=== PATIENT | female | born 1970 | race Caucasian/White ===

== ENCOUNTER 2017-09-26 16:47 | Inpatient (IN) | payer BC ==
[2017-09-26] MEDS ORDERED: CEFOXITIN SODIUM 2 GM in DEXTROSE 5 % IN WATER 100 ML IV ONE ×2 (17:27)
[2017-09-26] MEDS ORDERED: RINGER'S SOLUTION,LACTATED 1,000 ML IV ONE ×2 (17:33→18:05)
--- NOTE | 2017-09-26 17:41 | HP ---
Chief Complaint - Chief Complaint Date of Service: 09/26/17 Time of Service: 17:32 Chief Complaint: acute appendicitis History of Present Illness: Started with nausea and vomiting yesterday. Then developed abdominal pain. Evaluated at [facility] ER and found to have RLQ tenderness, elevated WBC and CT scan evidence of acute appendicitis. There is no surgeon at that institution, and she was transferred here for treatment. - Patient's Past Medical History Patient History - Medical: No pertinent hx Patient History - Cardiac/Respiratory: No pertinent hx Patient History - Cancer: No Hx of Cancer Patient History - Surgical Procedures: Hysterectomy, Orthopedic Patient History - Other: None LMP (females 10-50): Menopausal - Family History Family History:: no untoward family reactions to anesthesia, no familial bleeding tendencies - Social History Living Situations: home Abuse History: No History of abuse Psych History: No pertinent hx Smoking Status: Never smoker Alcohol Use: occasionally Drug Use: none - Immunizations Immunizations Up to Date: No Hx Pneumococcal Vaccination: No History of Influenza Vaccine: No Review Of Systems (GEN) - Review of Systems Generalized/Overall Review: Absent: Chills, Fever EENTM: Present: No Symptoms Reported Respiratory: Present: No Symptoms Reported Cardiac: Present: No Symptoms Reported Abdominal: Present: Nausea, Vomiting, Abdominal Pain Genitourinary: Present: No Symptoms Reported Musculoskeletal: Present: No Symptoms Reported Neurological: Present: No Symptoms Reported Skin: Present: No Symptoms Reported Immunizations: IMMUNIZATION HX Immunizations Up to Date No History of Influenza Vaccine No Hx Pneumococcal Vaccination No Allergies/Adverse Reactions: Allergies Allergy/AdvReac Type Severity Reaction Status Date / Time ciprofloxacin [From Cipro] Allergy Verified 09/26/17 16:49 Penicillins Allergy Verified 09/26/17 16:49 Sulfa (Sulfonamide Allergy Verified 09/26/17 16:49 Antibiotics) Home Medications: HOME MEDICATIONS PARoxetine HCL [Paxil] 5 mg PO DAILY 09/26/17 [Last Taken Unknown] Exam - Exam Vital Signs: Vital Signs - Last Taken Temp 38.5 C H 09/26/17 16:54 Pulse 115 H 09/26/17 17:30 Resp 16 09/26/17 17:30 BP 132/78 09/26/17 17:30 Pulse Ox 99 09/26/17 17:30 Constitutional: Present: Alert, Oriented x3, Cooperative, Well developed, Well nourished, Mild distress ENT Exam: Present: normal ENT inspection, hearing grossly normal Eye Exam: bilateral eye: normal inspection Neck: Present: non-tender, full range of motion, normal inspection Breasts: Present: Exam deferred Respiratory: Present: lungs clear, normal breath sounds, no respiratory distress Cardiovascular/Chest: Present: normal peripheral pulses, regular rate, rhythm, no murmur, tachycardia Peripheral Pulses: dorsalis-pedis (R): 4+, dorsalis-pedis (L): 4+, radial (R): 4 +, radial (L): 4+ Abdomen: Present: other - tender RLQ with rebound Skin Exam: Present: other - warm, diaphoratic 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 Risks and benefit of appendectomy explained as well as expected course of treatment/recovery. After an interactive discussion, her questions were answered to her apparent satisfaction and informed consent for appendectomy (laparoscopic or open) was obtained. present for interview and exam. Chlorhexidine wipes, IV Mefoxin (has taken cephalosporin before), SCD's. Problem: Acute
[2017-09-26] MEDS ORDERED: BUPIVACAINE HCL/EPINEPHRINE 50 ML VIAL IJ ONE ×2 (18:30)
[2017-09-26] MEDS ORDERED: MUPIROCIN 22 APPL TUBE TP ONE ×2 (19:48→20:00)
[2017-09-26] MEDS ORDERED: ONDANSETRON HCL/PF 2 MG/ML VIAL IV PRN (20:19)
[2017-09-26] MEDS ORDERED: MORPHINE SULFATE 4 MG/ML SYRG IV PRN (20:19)
[2017-09-26] MEDS ORDERED: PANTOPRAZOLE SODIUM 40 MG in NORMAL SALINE 100 ML IV SCH (20:30)
--- NOTE | 2017-09-26 20:43 | OR ---
Operative Report - Dictated Report Narrative: Date of operation: 09/26/2017 Preoperative diagnosis: Acute appendicitis Postoperative diagnosis: Acute appendicitis with rupture and generalized peritonitis Operation: Laparoscopic appendectomy Surgeon: ROBERT Jenkins MD Anesthesia: Gen. yandy Dewitt CRNA Indications for procedure: The patient is a 47-year-old female presented to [facility] ER with a one-day history of abdominal pain. She was found to have right lower quadrant tenderness, elevated white blood cell count, and CT scan evidence of acute appendicitis. There is no surgeon at that facility and she was transferred here for treatment. Findings: Severe acute appendicitis with rupture and generalized peritonitis Narrative of procedure: The patient was identified preoperatively, and prior to the administration of anesthetic a multidisciplinary timeout was observed. The patient was placed supine, SCDs were applied, and 2 g of intravenous Mefoxin administered. General endotracheal anesthetic was administered. The patient's abdomen was prepped with Betadine solution, and a generous operating field outlined with 4 sterile towels. The remainder the patient was covered with a sterile disposable drape. A transverse infraumbilical skin incision was made, and dissection was carried along the umbilical stalk until the fascia of the linea alba was encountered. This was incised. The peritoneum was elevated and incised to allow entry into the abdomen under direct vision. A Hussan cannula was placed and the abdomen insufflated with CO2. The laparoscopic camera was introduced and the abdomen briefly explored. The upper abdomen was obscured by a grossly dilated colon. The pelvis evidenced inflammatory changes with green purulent fluid indicating appendiceal rupture. The appendix was not immediately visible due to the grossly dilated nature of the cecum. Next under direct vision, 2 additional working ports were inserted through separate skin incisions, one in the suprapubic area one in the left lower quadrant. The apex of the cecum was retracted cephalad revealing the tip of a grossly inflamed and ruptured appendix. The pelvis and right lower quadrant were carefully suctioned clean. Although the appendix could be traced proximally for a short distance, omental adhesions along the right anterolateral abdominal wall prevented adequate cecal mobilization to visualize the proximal appendix. The adhesions were lysed under direct vision to allow mobilization of the right colon. Although the cecum could be retracted cephalad, it was apparent that additional retraction would be needed. An additional 5 mm working port was inserted through a separate skin incision in the right upper quadrant and used to grasp and retract the cecum. Gradually the inflamed appendix was traced proximally until the mesoappendix and base of the appendix were adequately exposed to allow transection. The mesoappendix and base of the appendix were then transected with a single application of a laparoscopic BRODIE stapling device. The stump of the appendix was seen to be hemostatic and gas and liquid tight. The mesoappendix was seen to be hemostatic. The appendix was placed in an Endobag and parked in the right lower quadrant. The right lower quadrant and pelvis were then irrigated with saline and suctioned clean. The small working ports were then withdrawn under direct vision to ensure entry site hemostasis. The appendix was removed in conjunction with the Hussan cannula. The pneumoperitoneum was allowed to escape , and after receiving a correct sponge needle and instrument count attention was turned to closing the abdomen. The fascia and peritoneum at the umbilicus were approximated with interrupted sutures of antibiotic containing #1 Vicryl. The subcutaneous tissue was irrigated with Betadine and saline, and space obliterated with interrupted sutures of 2-0 chromic. Skin incisions were approximated with interrupted vertical mattress sutures of 4-0 nylon. The operative sites were washed and dried. Dressings of Bactroban ointment and large Band-Aids were applied to the small port sites. The umbilical incision was dressed with Bactroban ointment, 2 x 2, large Band-Aid, and Medipore tape. The operative procedure was terminated at this point. There was no measurable blood loss. 0.5% Marcaine with epinephrine was used for local anesthetic infiltration area the appendix was submitted to pathology. The patient tolerated the anesthetic and procedure well without complication and was transferred to the recovery room awake, extubated, and in stable condition. Reviewed and electronically signed
[2017-09-26] MEDS: RINGER'S SOLUTION,LACTATED 1,000 ML IV PRN (21:51)
[2017-09-26] MEDS: CEFOXITIN SODIUM 2 GM in DEXTROSE 5 % IN WATER 100 ML IV SCH ×2 (23:54)
[2017-09-27] MEDS: oxyCODONE HCL/ACETAMINOPHEN 1 TAB TABLET PO PRN ×5 (00:03→21:28)
[2017-09-27] MEDS: CEFOXITIN SODIUM 2 GM in DEXTROSE 5 % IN WATER 100 ML IV SCH ×6 (06:02→19:44)
[2017-09-27] MEDS: RINGER'S SOLUTION,LACTATED 1,000 ML IV PRN (09:19)
[2017-09-27] MEDS: PARoxetine HCL 10 MG TABLET PO SCH (09:19)
[2017-09-27 11:22] LABS: Hemoglobin 12.3 gm/dL (12.5-16.0); Mean Cell Volume 87.5 fl (78-100); Mean Corpuscular Hemoglobin 30.8 pg (27-31); Mean Corpuscular Hgb Conc 35.1 g/dl (32-36); Neutrophil # 12.5 K/mm3 (1.3-6.0); Neutrophil % 86.8 % (42-75.0); Platelet Count 284 K/mm3 (150-450); White Blood Count 14.3 K/mm3 (4.0-10.5)
[2017-09-27] MEDS ORDERED: BISACODYL 5 MG TABLET.DR PO ONE ×2 (18:25→19:45)
[2017-09-27] MEDS ORDERED: BISACODYL 10 MG SUPP.RECT RC ONE ×2 (18:25→19:45)
--- NOTE | 2017-09-27 18:25 | PN ---
Dictated Progress Note - Date and Time Seen: Date: 09/27/17 Time: 18:22 - Progress Note Narrative: Vital Signs - Last Taken Temp 36.8 C 09/27/17 14:52 Pulse 93 09/27/17 14:52 Resp 20 09/27/17 14:52 BP 116/70 09/27/17 14:52 Pulse Ox 98 09/27/17 14:52 Abnormal/Pending Laboratory Last 24 HRS 09/27/17 11:19 WBC 14.3 H RBC 4.00 L Hgb 12.3 L Hct 35.0 L Immature Gran % (Auto) 0.60 H Immature Gran # (Auto) 0.08 H Neutrophils % 86.8 H Lymphocytes % 10.0 L Neutrophils # 12.5 H Lymphocytes # 1.44 L POD#1 Laparoscopic appendectomy VS normal, presenting pain now incisional. Dressings dry. Tolerating diet, no BM (has trouble at home) WBC down but not normal Will continue IV Mefoxin with saline lock. Dulcolax. Ambulate Re-check CBC in AM
[2017-09-27] MEDS: PANTOPRAZOLE SODIUM 40 MG in NORMAL SALINE 50 ML IV SCH (21:08)
[2017-09-28] MEDS: CEFOXITIN SODIUM 2 GM in DEXTROSE 5 % IN WATER 100 ML IV SCH ×4 (00:30→06:56)
[2017-09-28] MEDS: oxyCODONE HCL/ACETAMINOPHEN 1 TAB TABLET PO PRN ×4 (02:56→21:52)
[2017-09-28 05:21] LABS: Hematocrit 32.9 % (37.0-47.0); Hemoglobin 11.3 gm/dL (12.5-16.0); Mean Cell Volume 88.2 fl (78-100); Mean Corpuscular Hemoglobin 30.3 pg (27-31); Mean Corpuscular Hgb Conc 34.3 g/dl (32-36); Mean Platelet Volume 9.1 fl (6.0-9.5); Neutrophil # 12.4 K/mm3 (1.3-6.0); Neutrophil % 86.5 % (42-75.0); Platelet Count 262 K/mm3 (150-450); Red Blood Count 3.73 M/mm3 (4.2-5.4); Red Cell Distribution Width 12.9 % (11.5-14.0); White Blood Count 14.3 K/mm3 (4.0-10.5)
--- NOTE | 2017-09-28 09:28 | PN ---
Dictated Progress Note - Date and Time Seen: Date: 09/28/17 Time: 09:26 - Progress Note Narrative: Vital Signs - Last Taken Temp 37.2 C 09/28/17 07:49 Pulse 100 09/28/17 07:49 Resp 18 09/28/17 07:49 BP 121/71 09/28/17 07:49 Pulse Ox 98 09/28/17 07:49 Abnormal/Pending Laboratory Last 24 HRS 09/28/17 09/27/17 05:18 11:19 WBC 14.3 H 14.3 H RBC 3.73 L 4.00 L Hgb 11.3 L 12.3 L Hct 32.9 L 35.0 L Immature Gran % (Auto) 0.80 H 0.60 H Immature Gran # (Auto) 0.11 H 0.08 H Neutrophils % 86.5 H 86.8 H Lymphocytes % 9.4 L 10.0 L Neutrophils # 12.4 H 12.5 H Lymphocytes # 1.35 L 1.44 L POD#2 perforated appendicitis Pain better however tachycardic and WBC remains elevated MULTIPLE antibiotic allergies so cannot use flouroquinone. Will switch to Zosyn and monitor WBC She will need to have IV antibiotic until WBC normal
[2017-09-28] MEDS: PIPERACILLIN SODIUM/TAZOBACTAM 3.375 GM in DEXTROSE 5 % IN WATER 100 ML IV SCH ×4 (09:55→17:38)
[2017-09-28] MEDS: PARoxetine HCL 10 MG TABLET PO SCH (09:55)
[2017-09-28] MEDS ORDERED: MORPHINE SULFATE 2 MG/ML DISP.SYRIN IV PRN (10:00)
[2017-09-28] MEDS ORDERED: BISACODYL 5 MG TABLET.DR PO ONE (14:30)
[2017-09-28] MEDS ORDERED: PARoxetine HCL 10 MG TABLET PO ONE (15:00)
[2017-09-28] MEDS: SACCHAROMYCES BOULARDII 250 MG CAPSULE PO SCH (21:04)
[2017-09-28] MEDS: PANTOPRAZOLE SODIUM 40 MG in NORMAL SALINE 50 ML IV SCH (21:51)
[2017-09-29] MEDS: PIPERACILLIN SODIUM/TAZOBACTAM 3.375 GM in DEXTROSE 5 % IN WATER 100 ML IV SCH ×4 (01:07→08:33)
[2017-09-29 05:51] LABS: Hematocrit 33.5 % (37.0-47.0); Hemoglobin 11.3 gm/dL (12.5-16.0); Mean Cell Volume 89.1 fl (78-100); Mean Corpuscular Hemoglobin 30.1 pg (27-31); Mean Corpuscular Hgb Conc 33.7 g/dl (32-36); Mean Platelet Volume 8.8 fl (6.0-9.5); Neutrophil % 84.7 % (42-75.0); Platelet Count 298 K/mm3 (150-450); Red Blood Count 3.76 M/mm3 (4.2-5.4); Red Cell Distribution Width 12.9 % (11.5-14.0); White Blood Count 11.8 K/mm3 (4.0-10.5)
[2017-09-29] MEDS: SACCHAROMYCES BOULARDII 250 MG CAPSULE PO SCH (08:31)
[2017-09-29] MEDS: oxyCODONE HCL/ACETAMINOPHEN 1 TAB TABLET PO PRN (08:31)
[2017-09-29] MEDS: PARoxetine HCL 10 MG TABLET PO SCH (08:32)
--- NOTE | 2017-09-29 09:53 | DS ---
(1) Acute appendicitis Diagnosis(s): with perforation and generalized peritonitis Problem: Resolved Qualifiers: Acute appendicitis type: with generalized peritonitis Qualified Code(s): K35.2 - Acute appendicitis with generalized peritonitis; K35.0 - Acute appendicitis with generalized peritonitis Description of Stay: She underwent uncomplicated laparoscopic appendectomy for acute appendicitis with rupture and generalized peritonitis. An extra RUQ port was utilized for retraction. Chlorhexidine wipes, SCD's. She initially was given IV Mefoxin (did not evidence allergy) which was changed to IV Zosyn for broader spectrum coverage. Her presenting pain was replaced with incisional discomfort. Her incisions remained dry. She tolerated advanced diet and ambulated independently. Her WBC decreased. Discharged home on Augmentin BID x 7 days (stop if adverse reaction) and Percocet for pain. Instructions given and has phone #'s to call for questions or concerns. To contact the office for f/u apt 10/04/17. Work excuse given. Procedures Performed: see notes below - laparoscopic appendectomy Discharge Location: Home Disposition: Home self-care Condition: Good Discharge Activity: Activity as tolerated, No Lifting Discharge Diet: General/regular food Problem Oriented Discharge Instructions to Patient/Family: Laparoscopic Appendectomy, Adult, Care After, [id number] Prescriptions (Any new or edited meds): Amox Tr/Potassium Clavulanate [Augmentin 875-125 Tablet] 875 mg PO Q12H #14 tab oxyCODONE HCL/ACETAMINOPHEN [Percocet 5 MG/325 MG] 1 tab PO Q4H PRN #30 tablet PRN Reason: Moderate Pain (Pain Scale 4-6) Complete Home Medications List: Complete Home Medication List: PARoxetine HCL [Paxil] 5 mg PO DAILY 09/26/17 Amox Tr/Potassium Clavulanate [Augmentin 875-125 Tablet] 875 mg PO Q12H #14 tab 09/29/17 oxyCODONE HCL/ACETAMINOPHEN [Percocet 5 MG/325 MG] 1 tab PO Q4H PRN #30 tablet 09/29/17
[2017-09-29 10:29] VITALS: BP 137/85
== END 2017-09-29 12:25 | disposition home or self-care (01) | DRG 340 ==
LOC: ER 16:47 → AMB 17:10 → MS 19:48 → OBSVTOIN 09-27 08:40
PROVIDERS: ADMIT Surgery; ATTEND Surgery
PROC: 0DTJ4ZZ Resection of Appendix, Percutaneous Endoscopic Approach (ICD-10-PCS; principal; 2017-09-26)
DX: K35.2 Acute appendicitis with generalized peritonitis; R00.0 Tachycardia, unspecified; Z88.1 Allergy status to other antibiotic agents
CPT/HCPCS: 36415; 44960; 85025; 88304; 99284; G0378